=== PATIENT | female | born 1960 | race Caucasian/White ===

== ENCOUNTER 2016-12-23 23:05 | Emergency (ER) | payer SELFPAY ==
[~2016-12-23] VITALS: Ht 160 cm; Wt 54.0 kg
[2016-12-23 23:10] VITALS: TEMP 36.7; Ht 160 cm; Wt 54.0 kg
[2016-12-23] MEDS: SODIUM CHLORIDE 0.9% 1000ML 1,000 ML IV STA (23:51)
[2016-12-24] MEDS ORDERED: MULT-506 PO (00:14)
[2016-12-24] MEDS: SODIUM CHLORIDE 0.9% 1000ML 1,000 ML IV STA (00:14)
[2016-12-24 00:17] LABS: BASO % 0.5 %; BASO ABS # 0.03 K/uL (0-0.2); COMPLETE YES; EOS % 2.4 %; HEMATOCRIT 43.5 % (37-47); IG% 0.3 %; LYMPH % 43.3 %; LYMPH ABS # 2.72 K/uL (1.2-3.4); MEAN CELL VOLUME 92.9 fL (80-100); MEAN CORPUSCULAR HEMOGLOBIN 30.6 pg (25-34); MEAN CORPUSCULAR HGB CONC 32.9 g/dl (32-36); MEAN PLATELET VOLUME 9.3 fL (7.4-10.4); MONO % 8.6 %; NEUT % 44.9 %; PLATELET COUNT 258 K/uL (130-400); RED BLOOD COUNT 4.68 M/uL (4.2-5.4); WHITE BLOOD COUNT 6.28 K/uL (4.8-10.8)
[2016-12-24 00:19] LABS: URINE APPEARANCE CLEAR (CLEAR); URINE BILIRUBIN NEG (NEG); URINE COLOR YELLOW; URINE NITRITE NEG (NEG); URINE PH 5.5 (4.5-7.5); URINE SPECIFIC GRAVITY 1.014 (1.000-1.030); UROBILINOGEN NEG (NEG)
--- NOTE | 2016-12-24 00:26 | EMERGENCY ROOM VISIT NOTE ---
History Report prepared by Ivan: Penny Sparks Under the Supervision of: Dr. Dakota Salomon D.O. First contact with patient: 23:40 Chief Complaint: EYE ASSESSMENT Stated Complaint: SUDDEN BLACK SPOT IN R VISION, FLASHES OF LIGHT History of Present Illness The patient is a 56 year old female who presents to the Emergency Room for an eye assessment. The patient was folding laundry around 10pm and noticed a small floating dark spot in her right eye. She then had flashes of light in her right eye. Now she is experiencing "little pinpricks" of small dots in her visual field in the right eye. The patient denies any other symptoms. She denies headache, nausea, vomiting, chest pain, shortness of breath, and weakness. She denies any pain. She does not take any blood thinners. Source of History: patient Onset: 2 hours MEDICAL ADMINISTRATIVE SPECIALIST Position: eye (right) Quality: other (floating) Timing: intermittent Associated Symptoms: No headache, No chest pain, No SOB, No nausea, No vomiting, No weakness Review of Systems See HPI for pertinent positives & negatives. A total of 10 systems reviewed and were otherwise negative. Past Medical & Surgical Medical Problems: (1) Deviated nasal septum (2) Osteoporosis Family History No pertinent history stated. Social History Smoking Status: Never Smoker Housing Status: lives with family Current/Historical Medications Scheduled Multivitamin (Multivitamin), 1 TAB PO DAILY Allergies Coded Allergies: Amoxicillin (Verified Allergy, Unknown, hives, 12/23/16) Physical Exam Vital Signs Date Time Temp Pulse Resp B/P (MAP) Pulse Ox O2 Delivery O2 Flow Rate FiO2 12/24/16 01:35 54 18 112/69 97 12/24/16 00:15 Room Air 12/24/16 00:15 Room Air 12/23/16 23:10 36.7 67 18 144/74 92 Room Air Right Eye Acuity: 20/40 Left Eye Acuity: 20/30 Physical Exam GENERAL: Patient is awake, alert, and in no acute distress. Patient is resting comfortably and showing no signs of anxiety EYES: The conjunctivae are clear. The pupils are round and reactive. EARS, NOSE, MOUTH AND THROAT: The nose is without any evidence of any deformity. Mucous membranes are moist tongue is midline NECK: The neck is nontender and supple. RESPIRATORY: Normal respiratory effort is noted there is no evidence of wheezing rhonchi or rales CARDIOVASCULAR: Regular rate and rhythm noted there no murmurs rubs or gallops normal S1 normal S2 GASTROINTESTINAL: The abdomen is soft. Bowel sounds are present in all quadrants. Abdomen is nontender MUSCULOSKELETAL/EXTREMITIES: There is no evidence of gross deformity full range of motion is noted in the hips and shoulders SKIN: There is no obvious evidence of any rash. There are no petechiae, pallor or cyanosis noted. NEUROLOGIC: Patient is awake alert and oriented x3 strength is symmetric patellar reflexes are 2+ bilaterally Medical Decision & Procedures ER Provider Diagnostic Interpretation: Chest x-ray as interpreted by myself: Heart size is normal. No free air, no acute disease. Slight haziness at left base likely representing breast shadow. Radiology results as stated below per my review and radiologist interpretation: CT HEAD: No prior. No acute intracranial findings. Radiologist: Ming Limon MD Laboratory Results 12/24/16 00:05 Red Blood Count 4.68, Mean Corpuscular Volume 92.9, Mean Corpuscular Hemoglobin 30.6, Mean Corpuscular Hemoglobin Concent 32.9, Mean Platelet Volume 9.3, Neutrophils (%) (Auto) 44.9, Lymphocytes (%) (Auto) 43.3, Monocytes (%) (Auto) 8.6, Eosinophils (%) (Auto) 2.4, Basophils (%) (Auto) 0.5, Neutrophils # (Auto) 2.82, Lymphocytes # (Auto) 2.72, Monocytes # (Auto) 0.54, Eosinophils # (Auto) 0.15, Basophils # (Auto) 0.03 12/24/16 00:05 Test 12/24/16 00:05 White Blood Count 6.28 K/uL (4.8-10.8) Red Blood Count 4.68 M/uL (4.2-5.4) Hemoglobin 14.3 g/dL (12.0-16.0) Hematocrit 43.5 % (37-47) Mean Corpuscular Volume 92.9 fL (80-100) Mean Corpuscular Hemoglobin 30.6 pg (25-34) Mean Corpuscular Hemoglobin Concent 32.9 g/dl (32-36) Platelet Count 258 K/uL (130-400) Mean Platelet Volume 9.3 fL (7.4-10.4) Neutrophils (%) (Auto) 44.9 % Lymphocytes (%) (Auto) 43.3 % Monocytes (%) (Auto) 8.6 % Eosinophils (%) (Auto) 2.4 % Basophils (%) (Auto) 0.5 % Neutrophils # (Auto) 2.82 K/uL (1.4-6.5) Lymphocytes # (Auto) 2.72 K/uL (1.2-3.4) Monocytes # (Auto) 0.54 K/uL (0.11-0.59) Eosinophils # (Auto) 0.15 K/uL (0-0.5) Basophils # (Auto) 0.03 K/uL (0-0.2) RDW Standard Deviation 42.9 fL (36.4-46.3) RDW Coefficient of Variation 12.8 % (11.5-14.5) Immature Granulocyte % (Auto) 0.3 % Immature Granulocyte # (Auto) 0.02 K/uL (0.00-0.02) Urine Color YELLOW Urine Appearance CLEAR (CLEAR) Urine pH 5.5 (4.5-7.5) Urine Specific [place] 1.014 (1.000-1.030) Urine Protein NEG (NEG) Urine Glucose (UA) NEG (NEG) Urine Ketones NEG (NEG) Urine Occult Blood NEG (NEG) Urine Nitrite NEG (NEG) Urine Bilirubin NEG (NEG) Urine Urobilinogen NEG (NEG) Urine Leukocyte Esterase NEG (NEG) Anion Gap 6.0 mmol/L (3-11) Est Creatinine Clear Calc Drug Dose 65.0 ml/min Estimated GFR () 97.1 Estimated GFR (Non- 83.8 BUN/Creatinine Ratio 18.1 (10-20) Calcium Level 8.7 mg/dl (8.5-10.1) Magnesium Level 2.5 mg/dl (1.8-2.4) Total Bilirubin 0.3 mg/dl (0.2-1) Direct Bilirubin < 0.1 mg/dl (0-0.2) Aspartate Amino Transf (AST/SGOT) 16 U/L (15-37) Alanine Aminotransferase (ALT/SGPT) 21 U/L (12-78) Alkaline Phosphatase 75 U/L (45-117) Troponin I < 0.015 ng/ml (0-0.045) Total Protein 7.3 gm/dl (6.4-8.2) Albumin 4.3 gm/dl (3.4-5.0) Thyroid Stimulating Hormone (TSH) 1.760 uIu/ml (0.300-4.500) Laboratory results per my review. ECG Indication: other Rate (beats per minute): 56 Rhythm: sinus bradycardia Findings: no acute ischemic change, no ectopy Comparison ECG Date: no prior available ED Course 2340: The patient was evaluated in room A10. A complete history and physical examination were performed. 2350: NSS 1000 ml @ 999 mls/hr IV - pt declined 0108: I spoke with Dr. Shoemaker, the manager spring animal impersonator. We discussed the patient's case. He will follow-up with the patient in the office on Sunday. 5: I reassessed the patient at this time. She is feeling better and resting comfortably. I discussed the results and treatment plan with the patient. I answered all pertaining questions that she had. She expressed understanding and verbalized agreement. The patient will be discharged home. Medical Decision Differential diagnosis: Etiologies such as migraine headache, meningitis, sinusitis, CO exposure, ICH, SAH, infection, tumor, headache, sinus thrombosis, arterial dissection, as well as others were entertained. Nursing notes reviewed. The patient is a 56-year-old female who presented to the emergency department with difficulty in her vision in her right eye. She appeared to have a scotoma which started to present more is moving lites which were flashing. The patient' s physical exam was negative for any focal neurologic deficit. The patient had a CT the brain which did not show any acute disease. I discussed the patient's laboratory and radiographic studies with her. I also discussed his case with the on-call manager spring. At this time the sounds as though he would be more likely related to vitreous pathology. I discussed this with the patient. Likely she will require further evaluation. I discussed the patient's case with her and she was encouraged to call the manager spring to schedule a follow-up appointment. She was also encouraged to avoid aspirin or any other blood thinners. She was also encouraged to return to the emergency department immediately if symptoms change worsen or the need arises. Medication Reconcilliation Current Medication List: was personally reviewed by me Blood Pressure Screening Patient's blood pressure: Normal blood pressure Consults Time Called: 99 Consulting Physician: Dr. Shoemaker Returned Call: [address] Shoemaker, the manager spring animal impersonator. We discussed the patient' s case. He will follow-up with the patient in the office on Sunday. Impression Primary Impression: Visual disturbance Scribe Attestation The scribe's documentation has been prepared under my direction and personally reviewed by me in its entirety. I confirm that the note above accurately reflects all work, treatment, procedures, and medical decision making performed by me. Departure Information Dispostion Home / Self-Care Referrals Anthony Phan M.D. (PCP) Ming Shoemaker D.O. Forms HOME CARE DOCUMENTATION FORM, IMPORTANT VISIT INFORMATION, WORK / SCHOOL INSTRUCTIONS Patient Instructions My [facility], [facility] [employer] Additional Instructions Rest and avoid any strenuous activity. Call the manager spring to schedule a follow-up appointment. Return to the emergency department immediately if symptoms change worsen or the need arises.
[2016-12-24 00:27] LABS: MANUAL MICROSCOPIC REQUIRED? NO; REVIEW REQ? NO
[2016-12-24 00:38] LABS: ALT/SGPT 21 U/L (12-78); AST/SGOT 16 U/L (15-37); BLOOD UREA NITROGEN 14 mg/dl (7-18); BUN/CREATININE RATIO 18.1 (10-20); CALCIUM 8.7 mg/dl (8.5-10.1); CARBON DIOXIDE 30 mmol/L (21-32); CHLORIDE 106 mmol/L (98-107); CREATININE 0.78 mg/dl (0.60-1.20); GLUCOSE 105 mg/dl (70-99); MAGNESIUM 2.5 mg/dl (1.8-2.4); POTASSIUM 3.5 mmol/L (3.5-5.1); SODIUM 142 mmol/L (136-145)
[2016-12-24 00:49] LABS: ALKALINE PHOSPHATASE 75 U/L (45-117)
[2016-12-24 01:35] VITALS: BP 112/69; PULSE 54; O2SAT 97
--- NOTE | 2016-12-24 06:01 | DIAGNOSTIC IMAGING REPORT ---
CHEST ONE VIEW PORTABLE HISTORY: 56 years-old Female EVALUATE ALTERED MENTAL STATUS/WEAKNESS COMPARISON: Chest radiograph 08/24/2015 TECHNIQUE: Portable upright AP view of the chest FINDINGS: Cardiac silhouette is upper limits of normal, unchanged. No pneumothorax, pleural effusion or focal airspace consolidation. Nodular density at the level of the left lung base suggests nipple shadow. Bones appear grossly intact. IMPRESSION: No acute cardiopulmonary process. The above report was generated using voice recognition software. It may contain grammatical, syntax or spelling errors. Electronically signed by: Bolivar Enrique M.D. 12/24/2016 5:59 AM Dictated Date/Time: 12/24/2016 5:58 AM
--- NOTE | 2016-12-24 07:45 | DIAGNOSTIC IMAGING REPORT ---
HEAD WITHOUT CONTRAST (CT) CLINICAL HISTORY: 56 years-old Female with acute altered MENTAL STATUS/WEAKNESS. TECHNIQUE: Multiple axial CT images of the head were obtained without contrast. A dose lowering technique was utilized adhering to the principles of ALARA. CT DOSE: 537.48 mGy.cm COMPARISON: None. FINDINGS: No acute intracranial hemorrhage, midline shift, mass, large territorial ischemia or abnormal extra-axial collection. Note is made of mild cerebral and cerebellar atrophy with [place]-cisterna magna. The calvarium is intact. The paranasal sinuses, mastoid air cells, and middle ear cavities are clear. IMPRESSION: Mild cerebral and cerebellar atrophy without acute intracranial abnormality. The above report was generated using voice recognition software. It may contain grammatical, syntax or spelling errors. Electronically signed by: Bolivar Enrique M.D. 12/24/2016 7:44 AM Dictated Date/Time: 12/24/2016 7:42 AM
== END 2016-12-24 01:35 | disposition home or self-care (01) ==
LOC: C.EDB 23:07 → C.EDA 12-24 01:35
DX: H53.9 Unspecified visual disturbance (principal); R00.1 Bradycardia, unspecified; M81.0 Age-related osteoporosis without current pathological fracture; Z88.1 Allergy status to other antibiotic agents

== ENCOUNTER → 2017-11-27 | Outpatient (CLI) | payer OTHER ==
[~2017-11-27] MED LIST: MULT-506 PO
--- NOTE | 2017-11-27 13:51 | DIAGNOSTIC IMAGING REPORT ---
R VENOUS DOPP LOWER EXT UNILAT CLINICAL HISTORY: RLE PAIN LEG, R/O DVT pain. Edema. TECHNIQUE: Venous Doppler COMPARISON STUDY: None FINDINGS: Normal study IMPRESSION: Normal study The above report was generated using voice recognition software. It may contain grammatical, syntax or spelling errors. Electronically signed by: Steven Holliday M.D. 11/27/2017 1:50 PM Dictated Date/Time: 11/27/2017 1:50 PM
== END | disposition home or self-care (01) ==
LOC: C.ULTRBC 13:17
PROVIDERS: ATTEND Family Medicine
DX: M79.669 Pain in unspecified lower leg (principal)